=== PATIENT | male | born 2000 | race Caucasian/White ===

== ENCOUNTER 2020-05-15 20:56 | Emergency (ER) | payer MEDICAID ==
[~2020-05-15] VITALS: Ht 175.3 cm; Wt 63.6 kg
[2020-05-15] MEDS ORDERED: LIDOCAINE 1%/EPI 1:200,000/PF 10 ML VIAL INJ ONE (22:45)
[2020-05-15] MEDS ORDERED: BACITRACIN 0.9 GM PACKET OINTMENT TP ONE (22:45)
[2020-05-16 00:10] VITALS: BP 120/79
[2020-05-16] MEDS ORDERED: DOXYCYCLINE HYCLATE 100 MG TABLET PO ONE (00:15)
== END 2020-05-16 00:14 | disposition home or self-care (01) ==
LOC: EMS 20:56
DX: S51.812A Laceration without foreign body of left forearm, initial encounter (principal); W25.XXXA Contact with sharp glass, initial encounter; Y93.89 Activity, other specified; Y92.89 Other specified places as the place of occurrence of the external cause; Y99.8 Other external cause status
CPT/HCPCS: 12002; 73090; 99283; J3490